=== PATIENT | female | born 1985 | race Caucasian/White ===

== ENCOUNTER → 2019-12-11 08:02 | Outpatient (CLI) | payer BC, SELFPAY ==
--- NOTE | ~2019-12-11 | XR_ITS ---
EXAMINATION: XR wrist RT w scaphoid DATE: 12/11/2019 08:31 INDICATION: Right wrist pain. TECHNIQUE: 5 views of right wrist were obtained. COMPARISON: None. FINDINGS: Bone alignment is normal. No fracture. Joint spaces are well maintained. IMPRESSION: 1. Normal right wrist. Reviewed, dictated and finalized at location A. 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 Normal right wrist.
--- NOTE | ~2019-12-11 | XR_ITS ---
EXAMINATION: XR wrist LT w scaphoid DATE: 12/11/2019 08:30 INDICATION: Left wrist pain. TECHNIQUE: 5 views of left wrist were obtained. COMPARISON: None. FINDINGS: Bone alignment is normal. No fracture. Joint spaces are well maintained. IMPRESSION: 1. Normal left wrist. Reviewed, dictated and finalized at location A. 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 Normal left wrist.
== END ==
PROVIDERS: PCP Surgery Plastic and Reconstructive Surgery; Visit Provider Surgery Plastic and Reconstructive Surgery
DX: M25.531 Pain in right wrist (principal); M25.532 Pain in left wrist
CPT/HCPCS: 73110

== ENCOUNTER 2022-06-23 09:14 | Outpatient (CLI) | payer BC, SELFPAY ==
--- NOTE | ~2022-06-23 | XR_ITS ---
EXAMINATION: XR small bowel follow through DATE: 06/23/2022 11:41 INDICATION: Abnormal findings on diagnostic imaging. Abdominal pain. Diarrhea and bloating. TECHNIQUE: Oral contrast was administered, and a time course of radiographs of the abdomen was obtain ed. Fluoroscopy of the small bowel was performed. Fluoroscopy exposure time was 0.1 minutes. The tota l number of images was 13. COMPARISON: None. FINDINGS: There are no dilated loops of bowel. There is no abnormal mass or stricture. The terminal ileum is no rmal. Transit time from the stomach to proximal colon was approximately 2 hours. There are changes of posterior fusion procedure in thoracolumbar spine. IMPRESSION: 1. Normal small bowel series. Reviewed, dictated and finalized at location A.
== END 2022-06-23 09:15 | disposition home or self-care (01) ==
LOC: ANHIMG 09:17
PROVIDERS: PCP Internal Medicine; Visit Provider Nurse Practitioner
DX: R93.3 Abnormal findings on diagnostic imaging of other parts of digestive tract (principal); R14.0 Abdominal distension (gaseous); R19.7 Diarrhea, unspecified
CPT/HCPCS: 74250

== ENCOUNTER 2022-07-20 02:10 | Day surgery (SDC) | payer BC, SELFPAY ==
[2022-06-10 13:14] VITALS: BMI 20.9
[2022-06-26 13:04] VITALS: BMI 20.9
[2022-07-20 11:59] VITALS: BP 130/87; PULSE 73; RESP 20; TEMP 36.2; O2SAT 100
[2022-07-20] MEDS: LACTATED RINGERS 1,000 ML 150 ML IV CONT (12:17)
--- NOTE | 2022-07-20 13:11 | WPDANESEPPF ---
Anes - Initial Pre Proc Eval Procedure: Operation Date: 07/20/22 13:15 Proposed Procedures p Colonoscopy - Mike Gray MD Date/Time: 07/20/22 13:11 Surgeon: Mike Gray MD Pre Op Diagnosis: diarrhea, bloating, abdominal pain Patient Data Age: 37 Gender: F Height: 1.65 m Weight: 54.9 kg Last Vital Signs Temp 97.2 F L 07/20/22 11:59 Pulse 73 07/20/22 11:59 Resp 20 07/20/22 11:59 BP 130/87 07/20/22 11:59 Pulse Ox 100 07/20/22 11:59 O2 Del Method Room Air 07/20/22 11:59 Allergies Allergy/AdvReac Type Severity Reaction Status Date / Time minocycline Allergy Mild Hives Verified 07/20/22 11:57 penicillin G Allergy Mild Hives Verified 07/20/22 11:57 Penicillins Allergy Mild Hives Verified 07/20/22 11:57 CETIRIZINE HCL Allergy Mild rash Uncoded 06/26/22 13:02 Home Medications Medication Instructions Recorded Confirmed Type ferrous sulfate 325 mg (65 mg 325 mg PO DAILY 05/13/22 06/26/22 History iron) tablet (Feosol) multivitamin 1 tablet PO DAILY 05/13/22 06/26/22 History Patient hx anesthesia problems: none Family hx anesthesia problems: none Results Review: All pre-operative results and documents have been reviewed as part of the pre-operative evaluation. [facility] Past Medical History Medical History (Updated 05/13/22 @ 09:29 by Josey Pressley APRN) Abnormal findings on diagnostic imaging of digestive system Scoliosis Wrist pain Surgical History Surgical History History of back surgery Family History Family History Mother Family history of osteoporosis Family history of elevated blood lipids Family history of arthritis Family history of diabetes mellitus in first degree relative Hypertension Grandparent Family history of migraine headaches Family history of elevated blood lipids Family history of arthritis Family history of lung cancer Sibling Family history of attention deficit hyperactivity disorder (ADHD) Other Diabetes mellitus Family history of malignant neoplasm Social History Social History (Updated 05/13/22 @ 09:03 by KWAN Calix Smoking status: Never smoker Second hand tobacco smoke exposure: No Alcohol intake: current Drinks per week: 2 Substance use: current Substance use type: marijuana Other substance usage details: daily Last use: 06/25/22 Living arrangements: with family Gender identity (if verbalized by the patient): Female Spiritual care concerns: No Anes - Eval Final PreProcedure Day of Procedure 07/20/22 13:11 Patient weight: normal Heart: regular rate and rhythm Lungs: clear to auscultation Airway: Mallampati scale class II Neurological: alert and oriented Last oral intake: >/= 8 hours ASA classification: II Emergent: no Anesthetic plan: proceed Anesthesia type and monitoring: general GIVS and standard monitoring Results Review: All pre-operative results and documents have been reviewed as part of the pre-operative evaluation. Informed Consent: The patient's anesthetic plan and its attendant risks and benefits were discussed with the patient/family/POA. Questions were solicited and answers provided to the satisfaction of the patient/family/POA.
--- NOTE | 2022-07-20 13:15 | PM.HPGS ---
History of Present Illness History of Present Illness Consent: Risks, benefits, and alternatives have been discussed and questions answered. Patient agrees to proceed with procedure. Chief complaint: diarrhea, bloating, abdominal pain Narrative: Jennifer Nelson is a 37 year old female with gas and bloating without diarrhea since last September, never had colonoscopy. SBFT was normal Review of Systems Constitutional: Constitutional: Denies headache(s) and Denies weakness Eyes: Eyes: Denies blurry vision ENT: Reports Normal hearing present, Denies headache(s) and Denies neck pain Cardiovascular: Cardiovascular: Denies chest pain and Denies dyspnea Respiratory: Respiratory: Denies dyspnea Gastrointestinal: Gastrointestinal: Reports no additional gastrointestinal complaints Genitourinary: Genitourinary: Denies dysuria Musculoskeletal: Musculoskeletal: Denies neck pain Integumentary/Breasts: Skin/Breast: Denies dry skin Neurologic: Reports Normal hearing present, Denies headache(s) and Denies weakness Psychiatric: Psychiatric: Denies anxiety Endocrine: Endocrine: Denies change in body appearance Hematologic/Lymphatic: Hematologic/Lymphatic: Denies easy bleeding Allergic/Immunologic: Allergic/Immunologic: Denies urticaria PMFSH Past Medical History Medical History (Updated 05/13/22 @ 09:29 by Josey Pressley APRN) Abnormal findings on diagnostic imaging of digestive system Scoliosis Wrist pain Surgical History Surgical History History of back surgery Family History Family History Mother Family history of osteoporosis Family history of elevated blood lipids Family history of arthritis Family history of diabetes mellitus in first degree relative Hypertension Grandparent Family history of migraine headaches Family history of elevated blood lipids Family history of arthritis Family history of lung cancer Sibling Family history of attention deficit hyperactivity disorder (ADHD) Other Diabetes mellitus Family history of malignant neoplasm Social History Social History (Updated 05/13/22 @ 09:03 by Angeles Smith MA) Smoking status: Never smoker Second hand tobacco smoke exposure: No Alcohol intake: current Drinks per week: 2 Substance use: current Substance use type: marijuana Other substance usage details: daily Last use: 06/25/22 Living arrangements: with family Gender identity (if verbalized by the patient): Female Spiritual care concerns: No Meds Home Medications and Allergies Home Medications Medication Instructions Recorded Confirmed Type ferrous sulfate 325 mg (65 mg 325 mg PO DAILY 05/13/22 06/26/22 History iron) tablet (Feosol) multivitamin 1 tablet PO DAILY 05/13/22 06/26/22 History Allergies Allergy/AdvReac Type Severity Reaction Status Date / Time minocycline Allergy Mild Hives Verified 07/20/22 11:57 penicillin G Allergy Mild Hives Verified 07/20/22 11:57 Penicillins Allergy Mild Hives Verified 07/20/22 11:57 CETIRIZINE HCL Allergy Mild rash Uncoded 06/26/22 13:02 Vital Signs Vital Signs - 24 hr 07/20/22 11:59 Temperature 97.2 F L Pulse Rate 73 Respiratory Rate 20 Blood Pressure 130/87 Pulse Oximetry 100 Oxygen Delivery Room Air Exam Const: General: comfortable and no acute distress HENMT: Face/Nose/Sinus: Normal nares present Eyes: General: appearance normal, both eyes and all related structures Neck: Neck: no JVD Resp: Auscultation: clear to auscultation bilaterally Cardio: Rate: regular rate Rhythm: regular rhythm GI: Inspection: non-distended GI Palp: Yes Soft to palpation Skin: General skin exam: normal color Neuro: General: gait normal Speech: normal speech Extrem: General: normal to inspection Psych: Mental Status: mental status grossly normal Assessment and Plan
[2022-07-20 13:35] VITALS: BP 99/59; PULSE 64; RESP 18; O2SAT 100
[2022-07-20 13:45] VITALS: BP 113/72; PULSE 56; RESP 17; O2SAT 100
[2022-07-20 13:55] VITALS: BP 116/65; PULSE 53; RESP 16; O2SAT 100
== END 2022-07-20 14:14 | disposition home or self-care (01) ==
PROVIDERS: PCP Family Medicine; Visit Provider Internal Medicine Gastroenterology
PROC: 0DJD8ZZ Inspection of Lower Intestinal Tract, Via Natural or Artificial Opening Endoscopic (ICD-10-PCS; CPT 45378; principal; 2022-07-20 13:15)
DX: R14.3 Flatulence (principal); K64.8 Other hemorrhoids; R19.7 Diarrhea, unspecified; R14.0 Abdominal distension (gaseous); R10.9 Unspecified abdominal pain; M41.9 Scoliosis, unspecified; F12.90 Cannabis use, unspecified, uncomplicated
CPT/HCPCS: 45378; J2704; J7120

== ENCOUNTER 2022-07-31 09:11 | Emergency (ER) | payer BC, SELFPAY ==
[2022-07-31] VITALS (12 sets, daily range): BP systolic 123–144; BP diastolic 79–87; PULSE 69–92; RESP 12–20; O2SAT 99–100
--- NOTE | ~2022-07-31 | XR_ITS ---
EXAMINATION: XR chest 2V DATE: 07/31/2022 09:34 INDICATION: Midsternal chest pain TECHNIQUE: PA and lateral views of the chest are obtained. COMPARISON: None available FINDINGS: The lungs are free of acute opacities. No pleural effusion or pneumothorax. The cardiomedia stinal silhouette is normal. There are changes of posterior thoracolumbar fusion. IMPRESSION: 1. No acute cardiopulmonary abnormality. Reviewed, dictated and finalized at location B.
--- NOTE | 2022-07-31 09:19 | ECG_ITS ---
Measurements Intervals [place] Rate: 81 P: 59 ME: 133 QRS: 96 QRSD: 89 T: 23 QT: 363 QTc: 423 Interpretive Statements SINUS RHYTHM POSSIBLE LEFT ATRIAL ENLARGEMENT [-0.1mV P-WAVE IN V1/V2] BORDERLINE RIGHT AXIS DEVIATION [QRS AXIS > 90] POSSIBLE RIGHT VENTRICULAR CONDUCTION DELAY [RSR (QR) IN V1/V2] NONSPECIFIC T-WAVE ABNORMALITY NO PREVIOUS ECG AVAILABLE FOR COMPARISON Electronically Signed On 07-31-2022 14:04:34 CDT by Saleem Mcneil M.D.
--- NOTE | 2022-07-31 09:20 | ED.CHESTPAIN ---
HPI - Chest Pain General Chief Complaint: Chest Pain Stated Complaint: chest pain Time Seen by Provider: 07/31/22 09:12 History of Present Illness HPI narrative: 37-year-old female with a history of anxiety she has no previous history presents to the emergency room for evaluation of she is constant throbbing midsternal chest pain that is worse with inspiration. States the pain is sharp patient denies any recent URI symptoms. Denies any injury or trauma. Denies any radiating pain. States pain woke her up this morning at 230 and is improving after taking Klonopin that was prescribed to her 3 years ago for her anxiety. Patient denies any shortness of breath or difficulty breathing. Denies any syncope or presyncopal events. Related Data Home Medications Medication Instructions Recorded Confirmed ferrous sulfate 325 mg (65 mg 325 mg PO DAILY 05/13/22 06/26/22 iron) tablet (Feosol) multivitamin 1 tablet PO DAILY 05/13/22 06/26/22 Allergies Allergy/AdvReac Type Severity Reaction Status Date / Time minocycline Allergy Mild Hives Verified 07/20/22 11:57 penicillin G Allergy Mild Hives Verified 07/20/22 11:57 Penicillins Allergy Mild Hives Verified 07/20/22 11:57 CETIRIZINE HCL Allergy Mild rash Uncoded 06/26/22 13:02 Review of Systems Review of Systems: CONSTITUTIONAL: Denies fever, chills, or sweats. EYES: Denies visual changes, redness, or discharge. ENT: Denies rhinorrhea, congestion, sore throat, or otalgia. CARDIOVASCULAR: Reports chest pain RESPIRATORY: Denies cough or dyspnea. GASTROINTESTINAL: Denies abdominal pain, nausea, vomiting, or diarrhea. GENITOURINARY: Denies dysuria or hematuria. SKIN: Denies rash or itching. MUSCULOSKELETAL: Denies back pain, joint pain, or myalgia. NEUROLOGIC: Denies headache, numbness, dizziness, or weakness. PSYCHIATRIC: Denies anxiety or depression. [facility] Past Medical History Medical History Abnormal findings on diagnostic imaging of digestive system Scoliosis Wrist pain Surgical History Surgical History History of back surgery Family History Family History Mother Family history of osteoporosis Family history of elevated blood lipids Family history of arthritis Family history of diabetes mellitus in first degree relative Hypertension Grandparent Family history of migraine headaches Family history of elevated blood lipids Family history of arthritis Family history of lung cancer Sibling Family history of attention deficit hyperactivity disorder (ADHD) Other Diabetes mellitus Family history of malignant neoplasm Social History Social History Smoking status: Never smoker Second hand tobacco smoke exposure: No Alcohol intake: current Drinks per week: 2 Substance use: current Substance use type: marijuana Other substance usage details: daily Last use: 06/25/22 Gender identity (if verbalized by the patient): Female Spiritual care concerns: No Exam Narrative: GENERAL: Well-appearing, well-nourished, no physical limitations, and in no acute distress. HEAD: Normocephalic, atraumatic. EYES: Conjunctivae normal, PERRLA and EOMI. CHEST: Clear to auscultation. No respiratory distress. No wheezes rales or rhonchi. No tenderness. HEART: Regular rate and rhythm. No murmur heard. Normal peripheral pulses. ABDOMEN: Soft, nontender, nondistended, normal active bowel sounds. EXTREMITIES: Normal range of motion. No edema. No clubbing or cyanosis SKIN: Warm, dry, no rash. No noted wounds NEURO: No focal deficits. Alert and oriented x3. MAEW. CN's II-XI intact bilaterally, normal gait PSYCH: Cooperative. anxious. Course Vital Signs Vital signs: Vital Signs Pulse Rate 92 07/31/22 09:16 Respiratory Rate 14 07/31/22 09
[2022-07-31 10:14] LABS: Troponin I < 0.012 ng/mL (0.000-0.034)
== END 2022-07-31 11:12 | disposition home or self-care (01) ==
LOC: ANHED 09:35
PROVIDERS: Emergency Provider Nurse Practitioner Family; PCP Family Medicine
DX: R07.2 Precordial pain (principal); F41.9 Anxiety disorder, unspecified; R94.31 Abnormal electrocardiogram [ECG] [EKG]
CPT/HCPCS: 36415; 71046; 84484; 93005; 99284